=== PATIENT | male | born 1985 | race Caucasian/White ===

== ENCOUNTER 2023-04-01 17:36 | Emergency (ER) | payer OTHER, SELFPAY ==
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
[2023-04-01 17:38] VITALS: BP 134/74; PULSE 86; RESP 14; TEMP 36.7; O2SAT 99
[2023-04-01 20:04] VITALS: BP 155/80; PULSE 78; RESP 20; O2SAT 98
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
== END 2023-04-01 22:20 | disposition home or self-care (01) ==
PROVIDERS: Emergency Provider Nurse Practitioner Family
DX: S29.9XXA Unspecified injury of thorax, initial encounter (principal); K08.9 Disorder of teeth and supporting structures, unspecified; V49.40XA Driver injured in collision with unspecified motor vehicles in traffic accident, initial encounter
CPT/HCPCS: 71046; 99283